=== PATIENT | male | born 1980 | race Caucasian/White ===

== ENCOUNTER 2017-04-25 10:32 | Observation (INO) | payer OTHER ==
[~2017-04-25] VITALS: Ht 170.2 cm; Wt 82.0 kg
[2017-04-25] MEDS ORDERED: IOHEXOL 350 MG/ML 10 ML VIAL (for RAD DIAG) IVCONTRAST ONE (10:33)
[2017-04-25 10:35] VITALS: BP 138/85; PULSE 84; RESP 16; TEMP 98.5; O2SAT 100
[2017-04-25] MEDS ORDERED: SODIUM CHLOR 0.9% 1000 ML INJ 1,000 ML IV SCH (10:53)
[2017-04-25] MEDS ORDERED: SODIUM CHLORIDE 0.9% FLUSH 10 ML FLUSH IV FLUSH PRN (11:00)
[2017-04-25 11:11] VITALS: O2SAT 100
[2017-04-25 11:25] LABS: AUTOMATED NEUTROPHIL # 12.2 TH/MM3 (1.8-7.7); BASOPHIL # 0.1 TH/MM3 (0-0.2); BASOPHIL % 0.3 % (0.0-2.0); EOSINOPHIL # 0.1 TH/MM3 (0-0.4); EOSINOPHIL % 0.6 % (0.0-4.0); HEMATOCRIT 44.1 % (39.0-51.0); HEMO FLAGS DIFF FINAL; LYMPH % 11.5 % (9.0-44.0); LYMPHOCYTE # 1.7 TH/MM3 (1.0-4.8); MEAN CELL VOLUME 85.7 FL (80.0-100.0); MEAN CORPUSCULAR HEMOGLOBIN 29.6 PG (27.0-34.0); MEAN CORPUSCULAR HGB CONC 34.6 % (32.0-36.0); MONO % 5.7 % (0.0-8.0); NEUT % 81.9 % (16.0-70.0); PLATELET COUNT 185 TH/MM3 (150-450); RED BLOOD COUNT 5.15 MIL/MM3 (4.50-5.90); RED CELL DISTRIBUTION WIDTH 13.4 % (11.6-17.2); WHITE BLOOD COUNT 14.9 TH/MM3 (4.0-11.0)
[2017-04-25] MEDS ORDERED: MORPHINE SULFATE 4 MG/ML INJ IV PUSH ONE ×2 (11:30→13:30)
[2017-04-25] MEDS ORDERED: ONDANSETRON HCL 4 MG/2 ML VIAL IV PUSH ONE (11:30)
[2017-04-25 11:33] LABS: BLOOD, URINE NEG (NEG); COMMENT (UR) CULT NOT INDICATED; CULTURE IF INDICATED CULT NOT INDICATED; GLUCOSE,URINE NEG (NEG); HYALINE CAST, URINE 1 /lpf (RARE); KETONE, URINE NEG (NEG); MUCUS URINE FEW /lpf (OCC); NITRITE,URINE NEG (NEG); URINE COLOR YELLOW (YELLW/STRAW)
[2017-04-25 11:40] LABS: ALT (GPT) 34 U/L (12-78); ANION GAP 7 MEQ/L (5-15); AST (GOT) 22 U/L (15-37); BICARBONATE 28.7 MEQ/L (21.0-32.0); BLOOD UREA NITROGEN 23 MG/DL (7-18); CHLORIDE 103 MEQ/L (98-107); GLOMERULAR FILTRATION RATE 69 ML/MIN (>89); SODIUM (NA) 139 MEQ/L (136-145)
[2017-04-25 11:43] LABS: ALKALINE PHOSPHATASE 81 U/L (45-117); TOTAL BILIRUBIN ADULT 0.4 MG/DL (0.2-1.0)
[2017-04-25 12:51] VITALS: BP 126/67; PULSE 89; RESP 20; O2SAT 100
--- NOTE | 2017-04-25 12:52 | RADRPT ---
EXAM DATE/TIME: 04/25/2017 11:56 [place] COMPARISON: No previous studies available for comparison. INDICATIONS : Abdominal pain and distention for 5 days IV CONTRAST: 80 cc Omnipaque 350 (iohexol) IV ORAL CONTRAST: No oral contrast ingested. RADIATION DOSE: 6.74 CTDIvol (mGy) MEDICAL HISTORY : None SURGICAL HISTORY : None. ENCOUNTER: Initial ACUITY: 4 - 6 days PAIN SCALE: 7/10 LOCATION: diffuse abdomen TECHNIQUE: Volumetric scanning of the abdomen and pelvis was performed. Using automated exposure control and ad justment of the mA and/or kV according to patient size, radiation dose was kept as low as reasonably achievable to obtain optimal diagnostic quality images. DICOM format image data is available electro nically for review and comparison. FINDINGS: LOWER LUNGS: The visualized lower lungs are clear. LIVER: Homogeneous density without lesion. There is no dilation of the biliary tree. No calcified gallston es. SPLEEN: Normal size without lesion. PANCREAS: Within normal limits. KIDNEYS: Normal in size and shape. There is no mass, stone or hydronephrosis. Small, 4 mm parenchymal cyst in the midpole of the left kidney. ADRENAL GLANDS: Within normal limits. VASCULAR: There is no aortic aneurysm. BOWEL/MESENTERY: 8 mm appendicolith at the base of the appendix. Resulting appendicitis with the appendiceal diameter measuring 1.3 cm with periappendiceal inflammatory changes. ABDOMINAL WALL: Within normal limits. RETROPERITONEUM: There is no lymphadenopathy. BLADDER: No wall thickening or mass. REPRODUCTIVE: Within normal limits. INGUINAL: There is no lymphadenopathy or hernia. MUSCULOSKELETAL: Within normal limits for patient age. CONCLUSION: 1. Patient's symptoms are characteristic of an acute appendicitis with periappendiceal stranding, enl argement of the appendix and an 8 mm appendicolith at the appendiceal base. 2. No associated abscess. Darrion Pacheco MD on April 25, 2017 at 12:47 Board Certified Radiologist. This report was verified electronically.
[2017-04-25] MEDS ORDERED: ONDANSETRON HCL 4 MG/2 ML VIAL IV ONE (13:00)
--- NOTE | 2017-04-25 13:04 | PD ---
HPI Chief Complaint: Abdominal Pain Time Seen by Provider: 10:36 Travel History International Travel<30 days: No Contact w/Intl Traveler<30days: No Traveled to known affect area: No History of Present Illness HPI Is a 36-year-old male presents to the emergency department complaining of abdominal pain for the past 3-4 days, generalized lower abdominal bloating and tenderness. Symptoms been gradually worsening. He's had slight nausea but no vomiting. Some subjective chills but no fevers. No urinary symptoms. Decreased bowel movement in a little bit softer than normal but no real diarrhea. No history of previous similar symptoms. No history of abdominal surgery. History Past Medical History Medical History: Denies Significant Hx Social History Alcohol Use: No Tobacco Use: No Allergies-Medications (Allergen,Severity, Reaction): Coded Allergies: No Known Allergies (Unverified , 04/25/17) Reported Meds & Prescriptions Reported Meds & Active Scripts Active No Active Prescriptions or Reported Medications Review of Systems Except as stated in HPI: all other systems reviewed are Neg Physical Exam Narrative GENERAL: Well-appearing 36-year-old man, no acute distress. There is a little bit unwell but nontoxic. SKIN: Focused skin assessment warm/dry. NECK: Trachea midline. No JVD. CARDIOVASCULAR: Regular rate and rhythm. No murmur appreciated. RESPIRATORY: No accessory muscle use. Clear to auscultation. Breath sounds equal bilaterally. GASTROINTESTINAL: Abdomen is flat and soft, mild to moderate right lower quadrant tenderness. No rebound MUSCULOSKELETAL: No obvious deformities. No edema. NEUROLOGICAL: Awake and alert. No obvious cranial nerve deficits. Motor grossly within normal limits. Normal speech. PSYCHIATRIC: Appropriate mood and affect; insight and judgment normal. Data Data Last Documented VS Vital Signs Date Time Temp Pulse Resp B/P (MAP) Pulse Ox O2 Delivery O2 Flow Rate FiO2 04/25/17 12:51 89 20 126/67 (86) 100 Room Air 04/25/17 10:35 98.5 Orders Orders Complete Blood Count With Diff (04/25/17 10:53) Comprehensive Metabolic Panel (04/25/17 10:53) Lipase (04/25/17 10:53) Urinalysis - C+S If Indicated (04/25/17 10:53) Ct Abd/Pel W Iv Contrast(Rout) (04/25/17 10:53) Iv Access Insert/Monitor (04/25/17 10:53) Ecg Monitoring (04/25/17 10:53) Oximetry (04/25/17 10:53) NPO (04/25/17 10:53) Sodium Chlor 0.9% 1000 Ml Inj (Ns 1000 M (04/25/17 10:53) Sodium Chloride 0.9% Flush (Ns Flush) (04/25/17 11:00) Morphine Inj (Morphine Inj) (04/25/17 11:30) Ondansetron Inj (Zofran Inj) (04/25/17 11:30) Ondansetron Inj (Zofran Inj) (04/25/17 13:00) Iohexol 350 Inj (Omnipaque 350 Inj) (04/25/17 10:33) Admit Order (Ed Use Only) (04/25/17 ) Consent (04/25/17 13:18) Morphine Inj (Morphine Inj) (04/25/17 13:30) Labs Laboratory Tests Test 04/25/17 11:05 White Blood Count 14.9 TH/MM3 Red Blood Count 5.15 MIL/MM3 Hemoglobin 15.3 GM/DL Hematocrit 44.1 % Mean Corpuscular Volume 85.7 FL Mean Corpuscular Hemoglobin 29.6 PG Mean Corpuscular Hemoglobin Concent 34.6 % Red Cell Distribution Width 13.4 % Platelet Count 185 TH/MM3 Mean Platelet Volume 8.6 FL Neutrophils (%) (Auto) 81.9 % Lymphocytes (%) (Auto) 11.5 % Monocytes (%) (Auto) 5.7 % Eosinophils (%) (Auto) 0.6 % Basophils (%) (Auto) 0.3 % Neutrophils # (Auto) 12.2 TH/MM3 Lymphocytes # (Auto) 1.7 TH/MM3 Monocytes # (Auto) 0.9 TH/MM3 Eosinophils # (Auto) 0.1 TH/MM3 Basophils # (Auto) 0.1 TH/MM3 CBC Comment DIFF FINAL Differential Comment Urine Color YELLOW Urine Turbidity CLEAR Urine pH 5.0 Urine Specific [place] 1.029 Urine Protein NEG mg/dL Urine Glucose (UA) NEG mg/dL Urine Ketones NEG mg/dL Urine Occult Blood NEG Urine Nitrite NEG Urine Bilirubin NEG Urine Urobilinogen LESS THAN 2.0 MG/DL Urine Leukocyte Esterase NEG Urine RBC LESS THAN 1 /hpf Urine WBC 1 /hpf Urine Hyaline Casts 1 /lpf Urine Mucus FEW /lpf Microscopic Urinalysis Comment CULT NOT INDICATED Blood Urea Nitrogen 23 MG/DL Creatinine 1.18 MG/DL Random Glucose 102 MG/DL Total Protein 8.3 GM/DL Albumin 3.8 GM/DL Calcium Level 9.0 MG/DL Alkaline Phosphatase 81 U/L Aspartate Amino Transf (AST/SGOT) 22 U/L Alanine Aminotransferase (ALT/SGPT) 34 U/L Total Bilirubin 0.4 MG/DL Sodium Level 139 MEQ/L Potassium Level 4.0 MEQ/L Chloride Level 103 MEQ/L Carbon Dioxide Level 28.7 MEQ/L Anion Gap 7 MEQ/L Estimat Glomerular Filtration Rate 69 ML/MIN Lipase 182 U/L MDM Medical Decision Making Medical Screen Exam Complete: Yes Emergency Medical Condition: Yes Interpretation(s) LABS: CBC remarkable for mild leukocytosis. CMP is unremarkable. Lipase unremarkable. UA is unremarkable. CT abdomen and pelvis: Characteristic of acute appendicitis with periappendiceal stranding enlargement of the appendix and an 8 mm appendicolith. Differential Diagnosis Appendicitis, colitis, cholecystitis, pancreatitis, other Narrative Course Medical decision making 36-year-old man presents emergent arm generalized lower abdominal discomfort, right lower quadrant tenderness, otherwise healthy, mildly elevated white count a CT scan confirms turning for acute appendicitis. Clinically suggestive of acute appendicitis. We'll discuss a general surgery, likely appendectomy. Diagnosis Primary Impression: Acute appendicitis Admitting Information Admitting Physician Requests: Observation Scripts No Active Prescriptions or Reported Meds Christopher Zamorano MD Apr 25, 2017 13:04
[2017-04-25 14:17] VITALS: BP 126/66; PULSE 76; RESP 20; TEMP 98.5; O2SAT 99
[2017-04-25] MEDS ORDERED: ACETAMINOPHEN 1000 MG/100 ML 100 ML IV ONE (15:10)
[2017-04-25] MEDS ORDERED: SODIUM CHLORID 0.9% 500 ML IV PRN (15:30)
[2017-04-25] MEDS ORDERED: POVIDONE IODINE 5% (ANTISEPSIS KIT) 4 APPLICATIONS EACH NARE PRN (15:30)
[2017-04-25] MEDS ORDERED: LACTATED RINGER'S 1000 ML IV PRN (15:30)
[2017-04-25] MEDS ORDERED: METOPROLOL TARTRATE 25 MG TAB PO PRN (15:30)
[2017-04-25] MEDS ORDERED: CHLORHEXIDINE GLUCONATE 2 % 1 PACK (2 CLOTHS) TOPICAL PRN (15:30)
[2017-04-25] MEDS ORDERED: metroNIDAZOLE 500 MG INJ 100 ML IV ONE (15:53)
[2017-04-25] MEDS ORDERED: BUPIVACAINE/EPINEPHRINE 0.25% PF 30 ML VIAL ONE (15:54)
[2017-04-25] MEDS ORDERED: LEVOFLOXACIN 500 MG PREMIX INJ 100 ML IV ONE (16:02)
[2017-04-25] MEDS ORDERED: Post-op Orders (for Pharmacy) MISC XX ONE (17:15)
[2017-04-25] MEDS ORDERED: oxyCODONE/ACETAMINOPHEN 5 MG/325 MG TAB PO PRN ×2 (17:15)
[2017-04-25] MEDS ORDERED: diphenhydrAMINE HCL 25 MG CAP PO PRN (17:15)
[2017-04-25] MEDS ORDERED: MORPHINE SULFATE 4 MG/ML INJ IV PUSH PRN (17:15)
[2017-04-25] MEDS ORDERED: SODIUM CHLORIDE 0.9% FLUSH 5 ML FLUSH IVF PRN (17:15)
[2017-04-25] MEDS ORDERED: KETOROLAC TROMETHAMINE 30 MG/ML (IVP) VIAL IVP PRN (17:15)
[2017-04-25] MEDS ORDERED: ONDANSETRON HCL 4 MG/2 ML VIAL IV PUSH PRN (17:15)
[2017-04-25] MEDS ORDERED: MORPHINE SULFATE 8 MG/ML INJ IV PUSH PRN (17:15)
[2017-04-25] MEDS ORDERED: NALOXONE HCL 0.4 MG/ML AMP IV PUSH PRN (17:15)
[2017-04-25] MEDS ORDERED: DO NOT ADM ANY ANTICOAGULANT DRUGS PRN (17:24)
[2017-04-25] MEDS: LACTATED RINGER'S 1000 ML INJ 1,000 ML IV SCH (17:30)
[2017-04-25 18:10] VITALS: BP 117/57; PULSE 78; RESP 18; TEMP 96.7; O2SAT 99
[2017-04-25 20:00] VITALS: BP 111/67; PULSE 87; RESP 17; TEMP 96.3; O2SAT 98
[2017-04-25] MEDS: SODIUM CHLORIDE 0.9% FLUSH 5 ML FLUSH IVF SCH (20:07)
--- NOTE | 2017-04-25 22:34 | MP ---
cc: THA IGLESIAS M.D. DATE OF SURGERY 04/25/2017 PREOPERATIVE DIAGNOSIS Acute appendicitis. POSTOPERATIVE DIAGNOSIS Acute appendicitis. PROCEDURE PERFORMED Laparoscopic appendectomy. SURGEON Tha Iglesias MD PEDIATRIC NEUROPSYCHOLOGIST Marysol Rivera ANESTHESIA General endotracheal. COMPLICATIONS None. INDICATION FOR THE PROCEDURE Mr. Hilliard is a very pleasant 36-year-old male who presented to the emergency department complaining of abdominal pain for four or five days. He has worked up by Dr. Delta Reyes and found to have acute appendicitis. Risks and benefits of immediate appendectomy was discussed with him. He was agreeable. DETAILS OF PROCEDURE The patient was identified, brought the operating room and placed supine on the operating table. After general endotracheal anesthesia was achieved, the abdomen was prepped and draped in standard surgical fashion. Supraumbilical space was anesthetized with 0.25% Marcaine. Supraumbilical incision was made. Dissection carried down to the subcutaneous tissue in midline fascia. Midline fascia incised sharply. A finger was then placed in the peritoneal cavity without difficulty. Blunt balloon trocars inserted and the abdomen was insufflated 15 mm using CO2 gas. Next two 5 mm trocars were placed in the lower midline under direct vision after anesthetizing the skin and subcutaneous tissue with 0.25% Marcaine. Attention was directed to the right lower quadrant where a markedly thickened and inflamed appendix was immediately identified. The appendix was slightly adherent to the lateral right pelvic sidewall. This was freed up with hydrodissection. Once the appendix was freed up completely, the mesentery was taken down with a harmonic scalpel. The dissection proceeded down to the cecal base. Once the cecal base was achieved two 2-0 PDS Endoloops were placed on the proximal appendix at the junction of the cecum. The distal appendix was then transected with the harmonic scalpel. Appendix was placed into an Endopouch bag and brought out through the supraumbilical port. Appendix was quite large and we had to enlarge the fascial incision in the supraumbilical port. Appendix was sent to pathology for analysis. Next the abdominal cavity was rinsed out with normal saline solution. Stump was carefully inspected and found to be intact without any evidence of bleeding or leakage of stool. Endoloops were tested and found to be intact. All irrigant was removed from the abdominal cavity. The cecum was then returned to its anatomic position in the right lower quadrant. The omentum was then placed over the cecum and the appendiceal stump. All ports were removed under direct vision. Midline fascia was copiously irrigated with normal saline solution and closed with a 0 Vicryl interrupted x2 in [id number] fashion. Skin and subcutaneous tissue was copiously irrigated out and closed with 4-0 Vicryl. The patient tolerated the procedure well, was awakened, brought to recovery in stable condition. MD DEANNA Matta/LAYO /5:17 PM /10:21 PM
--- NOTE | 2017-04-25 22:34 | MB ---
cc: THA IGLESIAS DATE OF CONSULTATION 04/25/17 CHIEF COMPLAINT Abdominal pain HISTORY OF PRESENT ILLNESS A pleasant 36-year-old gentleman who reports about a 5-day history of abdominal pain and not feeling well. He states that the pain started shortly after Thanksgiving. He states the pain progressed. He was at work today and could not take the pain anymore and he went to the emergency room for evaluation. He was seen and evaluated by Dr. Delta Gamble who worked him up and diagnosed him with acute appendicitis. The patient reports some nausea but no gross emesis. Denies fever or chills. The pain is mainly in the right lower quadrant and is made worse by moving around. He denies previous episodes of pain. PAST MEDICAL HISTORY None PAST SURGICAL HISTORY Dental procedures. MEDICATIONS None. ALLERGIES NO KNOWN DRUG ALLERGIES. Does not smoke or drink. 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 FAMILY HISTORY He reports had father had gallbladder problems. He denies any family history of appendicitis. PHYSICAL EXAMINATION VITAL SIGNS: Temperature is 98, pulse is 76, blood pressure 120/66, respiratory rate 20. GENERAL: A young male who appears ill and pale. HEENT: Pupils equal react to light. Sclerae white. Oropharynx is clear and moist. NECK: Supple. No masses. LUNGS: Clear to auscultation bilaterally. HEART: S1, S2, no murmur. ABDOMEN: Soft, tender in the right lower quadrant with rebound and guarding. No abdominal masses. EXTREMITIES: Free range of motion x4. NEUROLOGIC: Alert and oriented x3. LABORATORY DATA White blood cell count 14.9 with 89% neutrophils, hemoglobin 15, platelet count 185. Electrolytes all within normal limits. Urinalysis is negative. IMAGING STUDIES CT pelvis demonstrates enlarged thickened appendix with inflammatory change in the right lower quadrant all consistent with acute appendicitis. IMPRESSION Acute appendicitis. PLAN Risks and benefits of immediate appendectomy was discussed with him. We discussed laparoscopic, possible open. He is agreeable. Operating room was notified. He will be taken up immediately. MD DEANNA Matta/ /5:14 PM /10:18 PM
[2017-04-26] VITALS (7 sets, daily range): BP systolic 94–130; BP diastolic 51–64; PULSE 79–100; RESP 17; TEMP 96–98.8; O2SAT 94–98
[2017-04-26] MEDS: LACTATED RINGER'S 1000 ML INJ 1,000 ML IV SCH ×2 (03:13→14:08)
[2017-04-26] MEDS ORDERED: OXYC1TAB63 PO (09:00)
[2017-04-26] MEDS: SODIUM CHLORIDE 0.9% FLUSH 5 ML FLUSH IVF SCH (09:25)
--- NOTE | 2017-04-26 14:35 | HHI.DS ---
Discharge Summary Admission Date Apr 25, 2017 at 17:14 Discharge Date: Apr 26, 2017 Admitting Diagnosis acute appendicitis Brief History 36 year old male with acute appendicitis CBC/BMP: 04/25/17 1105 04/25/17 1105 Significant Findings Laboratory Tests Test 04/25/17 11:05 04/26/17 05:55 04/26/17 11:47 White Blood Count 14.9 TH/MM3 (4.0-11.0) Neutrophils (%) (Auto) 81.9 % (16.0-70.0) Neutrophils # (Auto) 12.2 TH/MM3 (1.8-7.7) Urine Mucus FEW /lpf (OCC) Blood Urea Nitrogen 23 MG/DL (7-18) Total Protein 8.3 GM/DL (6.4-8.2) Estimat Glomerular Filtration Rate 69 ML/MIN (>89) Lactic Acid Level 2.8 mmol/L (0.4-2.0) 2.5 mmol/L (0.4-2.0) PE at Discharge Resting in bed Cardio: RRR Resp: CTAN Abd: lap sites c/d/i; distended; post op tenderness Hospital Course This is a 36 year old male POD1 laparoscopic appendectomy. His diet was advanced as tolerated. His pain was controlled using oral pain medications. He will follow up in the office as indicated on the DC information. Pt Condition on Discharge: Good Discharge Disposition: Discharge Home Discharge Instructions DIET: Follow Instructions for: As Tolerated, No Restrictions Activities you can perform: See Additionl Instruction Other Activity Instructions: Okay to shower this evening; pat incisions dry Avoid heavy pushing pulling or lifting Mayte Freedman Apr 26, 2017 14:35
== END 2017-04-26 17:15 | disposition home or self-care (01) ==
LOC: NEPD 10:32 → HSDC 13:31 → HSDI 17:14 → N07A 18:05
PROVIDERS: ADMIT Surgery Trauma Surgery; ATTEND Surgery Trauma Surgery
DX: K35.80 Unspecified acute appendicitis (principal)
CPT/HCPCS: 00840; 44970; 74177; 80053; 81001; 83605; 83690; 85025; 88304; 94150; 96361; 96374; 96375; 96376; 99285; G0378; J0131; J1885; J1956; J2270; J2405; J7030; J7120; Q9967